=== PATIENT | female | born 1980 | race Caucasian/White ===

== ENCOUNTER 2016-11-22 07:30 | Inpatient (IN) | payer BC ==
--- NOTE | 2016-11-22 08:22 | PCM.OPNOTE ---
- General Post-Op/Procedure Note Date of Surgery/Procedure: 11/22/16 Operative Procedure(s): Repeat Findings: * Minimal scar tissue between the rectus and fascia * Minimal scar tissue between the uterus and bladder * Baby girl in a vertex presentation. Lightly meconium stained fluid. APGARS of 7 & 9. Weight of 6lbs 11oz. * Normal appearance of the uterus, fallopian tubes, and ovaries Pre Op Diagnosis: History of prior . 40 weeks gestation Post-Op Diagnosis: Same Anesthesia Technique: Spinal Primary Surgeon: Abena Ponce Secondary Surgeon: Seth Caro Anesthesia Provider: Izzy Delgado Pathology: * Cord blood collected * Placenta discarded Fluid Replacement, Intraop: 1,500 Output, Urine Amount: 50 EBL in mLs: 400 Complications: None Condition: Good Free Text/Narrative:: The risks, benefits, indications, potential complications, and alternatives were explained to the patient and informed consent obtained. After induction of anesthesia, the patient was placed in a supine position and then draped and prepped in the usual sterile manner. A Pfannenstiel incision was made and carried down through the subcutaneous tissue to the fascia. Fascial incision was made and extended transversely. The fascia was from the underlying rectus tissue superiorly and inferiorly. The peritoneum was identified and entered. Peritoneal incision was extended longitudinally. The utero-vesical peritoneal reflection was incised transversely and the bladder flap was bluntly freed from the lower uterine segment. A low transverse uterine incision was made sharply with a scalpel and extended bluntly in a cephalocaudad direction. A baby girl was delivered from a vertex presentation with APGARS as above. After the umbilical cord was clamped and cut cord blood was obtained for evaluation. The placenta was removed intact and appeared normal. The uterus was exteriorized and cleared of clots. The uterine outline, tubes and ovaries appeared normal. The uterine incision was closed with running locked sutures of 0 Vicryl. Hemostasis was obtained with a second imbricating layer of 0 vicryl. The uterus was then placed back into the abdomen. The infracolic gutters were cleared of blood clots. The fascia was then reapproximated with running sutures of 0 Vicryl. The sucutaneous tissue was irrigated with sterile warm normal saline, hemostasis obtained with cautery. This layer was also closed with a running 0 vicryl. The skin was reapproximated with running Subcuticular 4-0 monocryl sutures. Instrument, sponge, and needle counts were correct prior the abdominal closure and at the conclusion of the case.
[2016-11-22] MEDS ORDERED: Morphine PF 10 MG/10 ML SDV ONE (08:24)
[2016-11-22] MEDS: Lactated Ringers 1,000 ML IV SCH ×2 (08:30→09:12)
[2016-11-22] MEDS ORDERED: Oxytocin 10 Units/1 ML SDV ONE (08:35)
[2016-11-22] MEDS ORDERED: Metoclopramide 10 MG/2 ML SDV IVPUSH ONE (08:53)
[2016-11-22] MEDS ORDERED: Sodium Chloride 0.9% 10 ML Syringe FLUSH PRN (08:53)
[2016-11-22] MEDS ORDERED: Citric Acid/Sodium Citrate Solution 30 ML Cup PO ONE (08:53)
--- NOTE | 2016-11-22 09:05 | PCM.PREANE ---
Preanesthetic Assessment - Procedure Proposed Procedure: Repeat section - Anesthesia/Transfusion/Family Hx Anesthesia History: Prior Anesthesia Without Reaction Family History of Anesthesia Reaction: No Transfusion History: No Prior Transfusion(s) Intubation History: Unknown - Review of Systems General: No Symptoms Pulmonary: Other (Congestion and drainage with laying flat in bed during ) Cardiovascular: Other (Murmur) Gastrointestinal: Other (Slight heartburn) Neurological: Headache (During , especially in the last week, higher BP in last week) Other: Reports: Thyroid Problems (Hypothyroidism), Anxiety - Physical Assessment NPO Status Date: 11/21/16 NPO Status Time: 22:00 Pulse: 71 O2 Sat by Pulse Oximetry: 100 Respiratory Rate: 14 Blood Pressure: 136/87 Temperature: 36.3 C Vital Signs: Last Vital Signs Temp 36.3 C 11/22/16 07:57 Pulse 71 11/22/16 07:57 Resp 14 11/22/16 07:57 BP 136/87 11/22/16 07:57 Pulse Ox 100 11/22/16 07:57 Height: 1.75 m Weight: 107.955 kg ASA Class: 2 Mental Status: Alert & Oriented x3 Airway Class: Mallampati = 1 Dentition: Reports: Normal Dentition Thyro-Mental Finger Breadths: 3 Mouth Opening Finger Breadths: 3 ROM/Head Extension: Full Lungs: Clear to auscultation, Normal respiratory effort Cardiovascular: Regular Rate, Regular Rhythm, No Murmurs - Lab Values: Lab values reviewed and ok to proceed with planned procedure - Allergies Allergies/Adverse Reactions: Allergies Allergy/AdvReac Type Severity Reaction Status Date / Time No Known Allergies Allergy Verified 11/22/16 08:36 - Acknowledgements Anesthesia Type Planned: Spinal Pt an Appropriate Candidate for the Planned Anesthesia: Yes Alternatives and Risks of Anesthesia Discussed w Pt/Guardian: Yes Pt/Guardian Understands and Agrees with Anesthesia Plan: Yes PreAnesthesia Questionnaire Other HEENT History: deviated septum, left Cardiovascular History: Reports: Heart Murmur COORDINATOR OF PLACEMENT History: Reports: : 3 Para: 2 Other Psychiatric History: hx depression/anxiety, was medicated 6 yrs ago, has not been on meds since Endocrine/Metabolic History: Reports: Hypothyroidism, Obesity/BMI 30+ - Past Surgical History Other Musculoskeletal Surgeries/Procedures:: Rt ulnar nerve surgery release - SUBSTANCE USE Smoking Status *Q: Never Smoker Second Hand Smoke Exposure: No Days Per Week of Alcohol Use: 0 Number of Drinks Per Day: 0 Total Drinks Per Week: 0 Recreational Drug Use History: No - HOME MEDS Home Medications: Home Meds Levothyroxine [Synthroid] 50 mcg PO ACBREAKFAST 12/25/14 [History] - CURRENT (IN HOUSE) MEDS Current Meds: Current Medications Citric Acid/Sodium Citrate (Bicitra Solution) 30 ml PO ONETIME ONE Stop: 11/22/16 08:54 Lactated Ringer's (Ringers, Lactated) 1,000 mls @ 125 mls/hr IV ASDIRECTED OMID Metoclopramide HCl (Reglan) 10 mg IVPUSH ONETIME ONE Stop: 11/22/16 08:54 Sodium Chloride (Saline Flush) 10 ml FLUSH ASDIRECTED PRN PRN Reason: Keep Vein Open Discontinued Medications Morphine Sulfate (Duramorph Pf) Confirm Administered Dose 10 mg .ROUTE .STK-MED ONE Stop: 11/22/16 08:25 Oxytocin (Pitocin) Confirm Administered Dose 20 unit .ROUTE .STK-MED ONE Stop: 11/22/16 08:36
[2016-11-22] MEDS ORDERED: Phenylephrine/Normal Saline 100 MCG/ML 10 ML Syringe ONE (10:47)
[2016-11-22] MEDS ORDERED: ceFAZolin 1 GM Vial ONE (10:47)
[2016-11-22] MEDS ORDERED: Ketorolac 30 MG/ML SDV ONE (10:47)
[2016-11-22] MEDS ORDERED: Ondansetron 4 MG/2 ML SDV ONE (10:47)
[2016-11-22] MEDS ORDERED: Lactated Ringers 1,000 ML ONE ×2 (10:48)
[2016-11-22] MEDS ORDERED: Meperidine PF 50 MG/ML Syringe IM PRN (11:08)
[2016-11-22] MEDS ORDERED: diphenhydrAMINE 50 MG/ML SDV IVPUSH PRN ×2 (11:08→12:00)
[2016-11-22] MEDS ORDERED: Ondansetron 4 MG/2 ML SDV IVPUSH PRN (11:08)
--- NOTE | 2016-11-22 11:12 | PCM.POSTAN ---
POST ANESTHESIA ASSESSMENT - MENTAL STATUS Mental Status: alert, oriented - VITAL SIGNS Pulse Rate: 71 SaO2: 98 Resp Rate: 16 Blood Pressure: 117/76 Temperature: 36.7 C - RESPIRATORY Respiratory Status: respiratory rate WNL, airway patent, O2 saturation stable - CARDIOVASCULAR CV Status: pulse rate WNL, blood pressure stable - GASTROINTESTINAL GI Status: no symptoms - PAIN Pain Score: 0 - POST OP HYDRATION Hydration Status: adequate & stable
[2016-11-22] MEDS ORDERED: Meperidine PF 50 MG/ML Syringe IVPUSH PRN (11:20)
[2016-11-22] MEDS ORDERED: Lanolin 100% Cream 7 GM Tube TOP PRN (12:00)
[2016-11-22] MEDS ORDERED: Naloxone 0.4 MG/ML SDV IVPUSH PRN (12:00)
[2016-11-22] MEDS ORDERED: Ondansetron 4 MG/2 ML SDV IV PRN (12:00)
[2016-11-22] MEDS ORDERED: Dextrose 5%-Lactated Ringers 1,000 ML IV SCH (12:00)
[2016-11-22] MEDS: Ketorolac 30 MG/ML SDV IVPUSH SCH ×2 (17:34→22:53)
[2016-11-22] MEDS: Simethicone 80 MG Tab.Chew PO PRN (22:13)
[2016-11-22] MEDS: Docusate Sodium 100 MG Cap PO PRN (22:56)
[2016-11-23] MEDS: Ketorolac 30 MG/ML SDV IVPUSH SCH (05:00)
--- NOTE | 2016-11-23 10:59 | PCM.SN ---
- Free Text/Narrative Note: PPD#1 Afebrile, no heavy vaginal bleeding, incision healing normally, no leg cramping , ambulating.
[2016-11-23] MEDS: Ibuprofen 600 MG Tab PO PRN ×2 (11:02→17:50)
[2016-11-23] MEDS: Docusate Sodium 100 MG Cap PO PRN ×2 (11:02→22:10)
[2016-11-23] MEDS: Acetaminophen/oxyCODONE 325-5 MG Tab PO PRN ×2 (15:50→21:49)
[2016-11-23] MEDS: Simethicone 80 MG Tab.Chew PO PRN (22:10)
[2016-11-24] MEDS: Acetaminophen/oxyCODONE 325-5 MG Tab PO PRN ×3 (03:53→20:34)
[2016-11-24] MEDS: Ibuprofen 600 MG Tab PO PRN ×3 (07:56→21:19)
[2016-11-24] MEDS: Docusate Sodium 100 MG Cap PO PRN ×2 (07:58→20:34)
--- NOTE | 2016-11-24 10:11 | PCM.SN ---
- Free Text/Narrative Note: PPD#2 Afebrile, no cough, Uterus involuting normally, Incision normal postoperative ecchymosis, no heavy vaginal bleeding, no leg cramping.
[2016-11-24] MEDS: Simethicone 80 MG Tab.Chew PO PRN (15:40)
[2016-11-25] MEDS: Ibuprofen 600 MG Tab PO PRN ×2 (03:55→09:28)
[2016-11-25 05:06] VITALS: BP 125/61
--- NOTE | 2016-11-25 11:53 | PCM.DCSUM1 ---
Discharge Summary - Hospital Course Free Text/Narrative:: [facility] Post-Op/Procedure Note Patient Name: SAVITA PITT Date of : 78 Patient Status: Inpatient Attending Provider: Abena Ponce Date: 11/22/16 08:20 Initialization Date: 11/22/16 08:20 - General Post-Op/Procedure Note Date of Surgery/Procedure: 11/22/16 Operative Procedure(s): Repeat Findings: * Minimal scar tissue between the rectus and fascia * Minimal scar tissue between the uterus and bladder * Baby girl in a vertex presentation. Lightly meconium stained fluid. APGARS of 7 & 9. Weight of 6lbs 11oz. * Normal appearance of the uterus, fallopian tubes, and ovaries Pre Op Diagnosis: History of prior . 40 weeks gestation Post-Op Diagnosis: Same Anesthesia Technique: Spinal Primary Surgeon: Abena Ponce Secondary Surgeon: Seth Caro Anesthesia Provider: Izzy Delgado Pathology: * Cord blood collected * Placenta discarded Fluid Replacement, Intraop: 1,500 Output, Urine Amount: 50 EBL in mLs: 400 Complications: None Condition: Good Free Text/Narrative:: The risks, benefits, indications, potential complications, and alternatives were explained to the patient and informed consent obtained. After induction of anesthesia, the patient was placed in a supine position and then draped and prepped in the usual sterile manner. A Pfannenstiel incision was made and carried down through the subcutaneous tissue to the fascia. Fascial incision was made and extended transversely. The fascia was from the underlying rectus tissue superiorly and inferiorly. The peritoneum was identified and entered. Peritoneal incision was extended longitudinally. The utero-vesical peritoneal reflection was incised transversely and the bladder flap was bluntly freed from the lower uterine segment. A low transverse uterine incision was made sharply with a scalpel and extended bluntly in a cephalocaudad direction. A baby girl was delivered from a vertex presentation with APGARS as above. After the umbilical cord was clamped and cut cord blood was obtained for evaluation. The placenta was removed intact and appeared normal. The uterus was exteriorized and cleared of clots. The uterine outline, tubes and ovaries appeared normal. The uterine incision was closed with running locked sutures of 0 Vicryl. Hemostasis was obtained with a second imbricating layer of 0 vicryl. The uterus was then placed back into the abdomen. The infracolic gutters were cleared of blood clots. The fascia was then reapproximated with running sutures of 0 Vicryl. The sucutaneous tissue was irrigated with sterile warm normal saline, hemostasis obtained with cautery. This layer was also closed with a running 0 vicryl. The skin was reapproximated with running Subcuticular 4-0 monocryl sutures. Instrument, sponge, and needle counts were correct prior the abdominal closure and at the conclusion of the case. HPI Initial Comments: [facility] Post-Op/Procedure Note Patient Name: SAVITA PITT Date of : 78 Patient Status: Inpatient Attending Provider: Abena Ponce Date: 11/22/16 08:20 Initialization Date: 11/22/16 08:20 - General Post-Op/Procedure Note Date of Surgery/Procedure: 11/22/16 Operative Procedure(s): Repeat Findings: * Minimal scar tissue between the rectus and fascia * Minimal scar tissue between the uterus and bladder * Baby girl in a vertex presentation. Lightly meconium stained fluid. APGARS of 7 & 9. Weight of 6lbs 11oz. * Normal appearance of the uterus, fallopian tubes, and ovaries Pre Op Diagnosis: History of prior . 40 weeks gestation Post-Op Diagnosis: Same Anesthesia Technique: Spinal Primary Surgeon: Abena Ponce Secondary Surgeon: Seth Caro Anesthesia Provider: Izzy Delgado Pathology: * Cord blood collected * Placenta discarded Fluid Replacement, Intraop: 1,500 Output, Urine Amount: 50 EBL in mLs: 400 Complications: None Condition: Good Free Text/Narrative:: The risks, benefits, indications, potential complications, and alternatives were explained to the patient and informed consent obtained. After induction of anesthesia, the patient was placed in a supine position and then draped and prepped in the usual sterile manner. A Pfannenstiel incision was made and carried down through the subcutaneous tissue to the fascia. Fascial incision was made and extended transversely. The fascia was from the underlying rectus tissue superiorly and inferiorly. The peritoneum was identified and entered. Peritoneal incision was extended longitudinally. The utero-vesical peritoneal reflection was incised transversely and the bladder flap was bluntly freed from the lower uterine segment. A low transverse uterine incision was made sharply with a scalpel and extended bluntly in a cephalocaudad direction. A baby girl was delivered from a vertex presentation with APGARS as above. After the umbilical cord was clamped and cut cord blood was obtained for evaluation. The placenta was removed intact and appeared normal. The uterus was exteriorized and cleared of clots. The uterine outline, tubes and ovaries appeared normal. The uterine incision was closed with running locked sutures of 0 Vicryl. Hemostasis was obtained with a second imbricating layer of 0 vicryl. The uterus was then placed back into the abdomen. The infracolic gutters were cleared of blood clots. The fascia was then reapproximated with running sutures of 0 Vicryl. The sucutaneous tissue was irrigated with sterile warm normal saline, hemostasis obtained with cautery. This layer was also closed with a running 0 vicryl. The skin was reapproximated with running Subcuticular 4-0 monocryl sutures. Instrument, sponge, and needle counts were correct prior the abdominal closure and at the conclusion of the case. Brief History: [facility] . Post-Op/Procedure Note. Patient Name: SAVITA PITT [facility] Record Number: [id number]. Date of : Patient Status: Inpatient. Attending Provider: Abena Poncecount Number: [id number]. Date: 11/22/16 08:20Initialization Date: 11/22/16 08:20. - General Post-Op/Procedure Note. Date of Surgery/Procedure: 11/22/16. Operative Procedure(s): Repeat . Findings: Minimal scar tissue between the rectus and fascia. Minimal scar tissue between the uterus and bladder. Baby girl in a vertex presentation. Lightly meconium stained fluid. APGARS of 7 & 9. Weight of 6lbs 11oz. Normal appearance of the uterus, fallopian tubes, and ovaries. Pre Op Diagnosis: History of prior . 40 weeks gestation. Post-Op Diagnosis: Same. Anesthesia Technique: Spinal. Primary Surgeon: Abena Ponce. Secondary Surgeon: Seth Caro. Anesthesia Provider: Izzy Delgado. Pathology: Cord blood collected. Placenta discarded. Fluid Replacement, Intraop: 1,500. Output, Urine Amount: 50. EBL in mLs: 400. Complications: None. Condition: Good. Free Text/ Narrative:: The risks, benefits, indications, potential complications, and alternatives were explained to the patient and informed consent obtained. After induction of anesthesia, the patient was placed in a supine position and then draped and prepped in the usual sterile manner. A Pfannenstiel incision was made and carried down through the subcutaneous tissue to the fascia. Fascial incision was made and extended transversely. The fascia was from the underlying rectus tissue superiorly and inferiorly. The peritoneum was identified and entered. Peritoneal incision was extended longitudinally. The utero-vesical peritoneal reflection was incised transversely and the bladder flap was bluntly freed from the lower uterine segment. A low transverse uterine incision was made sharply with a scalpel and extended bluntly in a cephalocaudad direction. A baby girl was delivered from a vertex presentation with APGARS as above. After the umbilical cord was clamped and cut cord blood was obtained for evaluation. The placenta was removed intact and appeared normal. The uterus was exteriorized and cleared of clots. The uterine outline, tubes and ovaries appeared normal. The uterine incision was closed with running locked sutures of 0 Vicryl. Hemostasis was obtained with a second imbricating layer of 0 vicryl. The uterus was then placed back into the abdomen. The infracolic gutters were cleared of blood clots. The fascia was then reapproximated with running sutures of 0 Vicryl. The sucutaneous tissue was irrigated with sterile warm normal saline, hemostasis obtained with cautery. This layer was also closed with a running 0 vicryl. The skin was reapproximated with running Subcuticular 4-0 monocryl sutures. Instrument, sponge, and needle counts were correct prior the abdominal closure and at the conclusion of the case. - Discharge Data Discharge Date: 11/25/16 Discharge Disposition: Home, Self-Care 01 Condition: Good - Discharge Diagnosis/Problem(s) (1) 40 weeks gestation of SNOMED Code(s): 26976321 ICD Code: Z3A.40 - 40 WEEKS GESTATION OF Status: Acute Current Visit: Yes (2) delivery delivered SNOMED Code(s): 631564913 ICD Code: O82 - ENCOUNTER FOR DELIVERY WITHOUT INDICATION Status: Acute Current Visit: Yes - Patient Summary/Data Operative Procedure(s) Performed: Repeat Complications: none Consults: none Hospital Course: uneventful - Patient Instructions Diet: Heart Healthy Diet Driving: Do Not Drive (x4 weeks) Showering/Bathing: May Shower, No Tub Bathing/Swimming (x6 weeks) Wound/Incision Care: Keep Operative Site/Wound Site Clean and Dry Notify Provider of: Fever, Increased Pain, Swelling and Redness, Drainage, Nausea and/or Vomiting - Discharge Plan Home Medications: Home Meds Levothyroxine [Synthroid] 50 mcg PO ACBREAKFAST 12/25/14 [History] Acetaminophen/oxyCODONE [Percocet 325-5 MG] 1 tab PO Q6H PRN #30 tablet [Rx] Docusate Sodium [Colace] 100 mg PO Q12H PRN #0 cap 11/25/16 [Rx] Ibuprofen [IJD: Ibuprofen] 200 - 600 mg PO Q6H PRN #0 tablet 11/25/16 [Rx] Simethicone 80 mg PO Q6H PRN #0 tab.chew 11/25/16 [Rx] Referrals: Abena Ponce MD [Physician] - (4 weeks) - Discharge Summary/Plan Comment DC Time >30 min.: No - Patient Data Vitals - Most Recent: Last Vital Signs Temp 97.5 F 11/25/16 03:54 Pulse 79 11/25/16 03:54 Resp 14 11/24/16 20:43 BP 125/61 11/25/16 03:54 Pulse Ox 97 11/25/16 03:54 Weight - Most Recent: 238 lb I&O - Last 24 hours: Intake & Output 11/24/16 11/25/16 11/25/16 22:59 06:59 14:59 Intake Total 240 120 Balance 240 120 Med Orders - Current: Current Medications Diphenhydramine HCl (Benadryl) 25 mg IVPUSH Q6H PRN PRN Reason: pruritis Diphenhydramine HCl (Benadryl) 25 mg IVPUSH Q6H PRN PRN Reason: Itching or Nausea Docusate Sodium (Colace) 100 mg PO Q12H PRN PRN Reason: Constipation Last Admin: 11/24/16 20:34 Dose: 100 mg Emollient Ointment (Lansinoh Hpa) 0 gm TOP ASDIRECTED PRN PRN Reason: Sore Nipples Last Admin: 11/24/16 18:51 Dose: 1 tube Ibuprofen (Motrin) 600 mg PO Q6H PRN PRN Reason: mild pain or fever Last Admin: 11/25/16 09:28 Dose: 600 mg Naloxone HCl (Narcan) 0.1 mg IVPUSH SEECOMMENT PRN PRN Reason: Respiratory Depression Ondansetron HCl (Zofran) 4 mg IVPUSH ONETIME PRN PRN Reason: Nausea/Vomiting Ondansetron HCl (Zofran) 4 mg IV Q8H PRN PRN Reason: Nausea/Vomiting Oxycodone/Acetaminophen (Percocet 325-5 Mg) 2 tab PO Q4H PRN PRN Reason: Pain (moderate 4-6) Last Admin: 11/24/16 20:34 Dose: 1 tab Simethicone (Simethicone) 80 mg PO Q6H PRN PRN Reason: Gas Last Admin: 11/24/16 15:40 Dose: 80 mg Discontinued Medications Cefazolin Sodium (Ancef) Confirm Administered Dose 2 gm .ROUTE .STK-MED ONE Stop: 11/22/16 10:48 Citric Acid/Sodium Citrate (Bicitra Solution) 30 ml PO ONETIME ONE Stop: 11/22/16 08:54 Last Admin: 11/22/16 09:42 Dose: 30 ml Lactated Ringer's (Ringers, Lactated) 1,000 mls @ 125 mls/hr IV ASDIRECTED OMID Last Admin: 11/22/16 09:12 Dose: 125 mls/hr Lactated Ringer's (Ringers, Lactated) Confirm Administered Dose 1,000 mls @ as directed .ROUTE .STK-MED ONE Stop: 11/22/16 10:49 Lactated Ringer's (Ringers, Lactated) Confirm Administered Dose 1,000 mls @ as directed .ROUTE .STK-MED ONE Stop: 11/22/16 10:49 Dextrose/Lactated Ringer's (Dextrose 5%-Lactated Ringers) 1,000 mls @ 125 mls/ hr IV ASDIRECTED OMID Stop: 11/22/16 19:59 Last Admin: 11/22/16 18:33 Dose: Not Given Ketorolac Tromethamine (Toradol) Confirm Administered Dose 30 mg .ROUTE .STK- MED ONE Stop: 11/22/16 10:48 Ketorolac Tromethamine (Toradol) 30 mg IVPUSH Q6H OMID Stop: 11/23/16 04:46 Last Admin: 11/23/16 05:00 Dose: 30 mg Meperidine HCl (Demerol) 50 mg IM Q6H PRN PRN Reason: Pain Meperidine HCl (Demerol) 12.5 mg IVPUSH ONETIME PRN PRN Reason: Shivering Stop: 11/23/16 11:21 Metoclopramide HCl (Reglan) 10 mg IVPUSH ONETIME ONE Stop: 11/22/16 08:54 Last Admin: 11/22/16 09:42 Dose: 10 mg Morphine Sulfate (Duramorph Pf) Confirm Administered Dose 10 mg .ROUTE .STK-MED ONE Stop: 11/22/16 08:25 Ondansetron HCl (Zofran) Confirm Administered Dose 4 mg .ROUTE .STK-MED ONE Stop: 11/22/16 10:48 Oxytocin (Pitocin) Confirm Administered Dose 20 unit .ROUTE .STK-MED ONE Stop: 11/22/16 08:36 Phenylephrine HCl (Phenylephrine In Ns 100 Mcg/Ml) Confirm Administered Dose 1 mg .ROUTE .STK-MED ONE Stop: 11/22/16 10:48 Sodium Chloride (Saline Flush) 10 ml FLUSH ASDIRECTED PRN PRN Reason: Keep Vein Open *Q Meaningful Use (DIS) - VTE *Q VTE Criteria *Q: - Stroke *Q Stroke Criteria *Q: - AMI *Q AMI Criteria *Q:
== END 2016-11-25 12:07 | disposition home or self-care (01) | DRG 540 ==
LOC: JD.OB 07:30
PROVIDERS: ADMIT Obstetrics & Gynecology; ATTEND Obstetrics & Gynecology
PROC: 10D00Z1 Extraction of Products of Conception, Low, Open Approach (ICD-10-PCS; principal; 2016-11-22)
DX: O34.211 Maternal care for low transverse scar from previous cesarean delivery (principal); N85.8 Other specified noninflammatory disorders of uterus; Z3A.40 40 weeks gestation of pregnancy; Z37.0 Single live birth; O99.284 Endocrine, nutritional and metabolic diseases complicating childbirth; E06.3 Autoimmune thyroiditis
CPT/HCPCS: 01961; 36415; 85027; A9270-GY; J0690; J1885; J2270; J2405; J2590; J2765; J7120

== ENCOUNTER 2018-07-26 08:41 | Emergency (ER) | payer BC ==
[2018-07-26] MEDS ORDERED: Sodium Chloride 0.9% 10 ML Syringe FLUSH PRN (09:13)
--- NOTE | 2018-07-26 09:18 | EDM.PDOC ---
ED HPI GENERAL MEDICAL PROBLEM - General Chief Complaint: Syncope Stated Complaint: SYNCOPE Time Seen by Provider: 07/26/18 08:58 Source of Information: Reports: Patient History Limitations: Reports: No Limitations - History of Present Illness INITIAL COMMENTS - FREE TEXT/NARRATIVE: The patient is a 38-year-old female with hx hypothyroidism otherwise healthy who comes in after a syncopal episode during the night. She states that she used to have syncopal episodes with her periods, thought vasovagal, but hasn't had a passing out episode in a long time. Last night around 2 AM she was up in the middle of the night with one of her small children, changing a diaper, when she suddenly felt very lightheaded and felt like she is pass out. She was able to yell twice for her . She doesn't remember anything after that. He foundl her slumped over on the floor, eyes open, not responding. He told her that she was out for a few minutes. After that she woke up and felt kind of weak and dizzy but otherwise okay. She drank some water and went back to bed. This morning she feels vaguely weak but has no other specific complaint. She said she ate a normal meal last evening before going to bed. Notes that she has been exhausted lately with 3 children under the age of 3 including one who has been chronically ill and has high medical needs, but she notes that things have been going well lately and she's actually been getting a lot more sleep than usual for the last 2 weeks. No recent travel or immobilization. No recent illness. No vomiting, diarrhea, urinary symptoms. She is on her menstrual period now and has had fairly heavy bleeding with that. No recent surgery. She has a mild headache, no other specific complaint at this time. - Related Data Allergies Allergy/AdvReac Type Severity Reaction Status Date / Time No Known Allergies Allergy Verified 11/22/16 08:36 Home Meds: Home Meds Levothyroxine [Synthroid] 50 mcg PO ACBREAKFAST 12/25/14 [History] Ibuprofen [IJD: Ibuprofen] 200 - 600 mg PO Q6H PRN #0 tablet 11/25/16 [Rx] Past Medical History Other HEENT History: deviated septum, left Cardiovascular History: Reports: Heart Murmur [place] History: Reports: Psychiatric History: Reports: Anxiety, Depression Other Psychiatric History: hx depression/anxiety, was medicated 6 yrs ago, has not been on meds since Endocrine/Metabolic History: Reports: Hypothyroidism, Obesity/BMI 30+ - Past Surgical History Other Musculoskeletal Surgeries/Procedures:: Rt ulnar nerve surgery release Social & Family History - Family History Family Medical History: Noncontributory - Tobacco Use Smoking Status *Q: Never Smoker - Caffeine Use Caffeine Use: Reports: Coffee Other Caffeine Use: Occasional - Recreational Drug Use Recreational Drug Use: No ED ROS GENERAL - Review of Systems Review Of Systems: See Below Constitutional: Denies: Fever HEENT: Reports: Rhinitis Respiratory: Denies: Shortness of Breath Cardiovascular: Denies: Chest Pain Endocrine: Reports: Fatigue GI/Abdominal: Denies: Abdominal Pain, Vomiting : Denies: Dysuria Musculoskeletal: Denies: Leg Pain Skin: Reports: No Symptoms Neurological: Reports: No Symptoms Psychiatric: Reports: No Symptoms Hematologic/Lymphatic: Reports: No Symptoms Immunologic: Reports: No Symptoms - Physical Exam Exam: See Below Exam Limited By: No Limitations General Appearance: Alert, WD/WN, No Apparent Distress Eye Exam: Bilateral Eye: EOMI, Normal Inspection Ears: Normal External Exam Nose: Normal Inspection Throat/Mouth: Normal Inspection, Normal Oropharynx, Normal Voice Head Exam: Atraumatic, Normocephalic Neck: Normal Inspection, Supple, Non-Tender, Full Range of Motion Respiratory/Chest: No Respiratory Distress, Lungs Clear, Normal Breath Sounds, Chest Non-Tender Cardiovascular: Normal Peripheral Pulses, Regular Rate, Rhythm, No Edema GI/Abdominal: Soft, Non-Tender, No Distention Neuro Exam (Abbreviated): Alert, Oriented, CN II-XII Intact, Normal Cognition, No Motor/Sensory Deficits Back Exam: Normal Inspection Extremities: Normal Inspection Psychiatric: Normal Affect, Normal Mood Skin Exam: Warm, Dry, Intact, Normal Color, No Rash Course - Vital Signs Last Recorded V/S: Last Vital Signs Temp 36.8 C 07/26/18 08:51 Pulse 80 07/26/18 10:31 Resp 16 07/26/18 10:31 BP 102/63 07/26/18 10:31 Pulse Ox 95 07/26/18 10:31 Orthostatic Blood Pressure [ 105/71 Standing] Orthostatic Blood Pressure [ 107/79 Sitting] Orthostatic Blood Pressure [ 116/81 Supine] - Orders/Labs/Meds Orders: Active Orders 24 hr Category Date Time Status EKG 12 Lead [EKG Documentation Completion] [RC] STAT Care 07/26/18 09:07 Active Orthostatic Vital Signs [RC] ASDIRECTED Care 07/26/18 09:18 Active Peripheral IV Care [RC] . DIRECTED Care 07/26/18 09:13 Active Peripheral IV Care [RC] . DIRECTED Care 07/26/18 09:13 Active Peripheral IV Insertion Adult [OM.PC] Routine Oth 07/26/18 09:13 Ordered Labs: Laboratory Tests 07/26/18 07/26/18 07/26/18 Range/Units 09: 09:27 09:40 WBC 5.38 (3.98-10.04) K/mm3 RBC 4.25 (3.98-5.22) M/mm3 Hgb 12.2 (11.2-15.7) gm/L Hct 37.3 (34.1-44.9) % MCV 87.8 (79.4-94.8) fl MCH 28.7 (25.6-32.2) pg MCHC 32.7 (32.2-35.5) g/dl RDW Std Deviation 42.8 (36.4-46.3) fL Plt Count 260 (182-369) K/mm3 MPV 10.3 (9.4-12.3) fl Neut % (Auto) 71.6 H (34.0-71.1) % Lymph % (Auto) 17.1 L (19.3-51.7) % [place] % (Auto) 7.8 (4.7-12.5) % Eos % (Auto) 2.6 (0.7-5.8) Baso % (Auto) 0.7 (0.1-1.2) % Neut # (Auto) 3.85 (1.56-6.13) K/mm3 Lymph # (Auto) 0.92 L (1.18-3.74) K/mm3 [place] # (Auto) 0.42 H (0.24-0.36) K/mm3 Eos # (Auto) 0.14 (0.04-0.36) K/mm3 Baso # (Auto) 0.04 (0.01-0.08) K/mm3 Sodium 141 (136-145) mEq/L Potassium 3.8 (3.5-5.1) mEq/L Chloride 103 (98-107) mEq/L Carbon Dioxide 28 (21-32) mEq/L Anion Gap 13.8 (5-15) BUN 15 (7-18) mg/dL Creatinine 0.7 (0.55-1.02) mg/dL Est Cr Clr Drug Dosing 112.76 mL/min Estimated GFR (MDRD) > 60 (>60) mL/min BUN/Creatinine Ratio 21.4 H (14-18) Glucose 94 (74-106) mg/dL Calcium 8.8 (8.5-10.1) mg/dL Magnesium 2.0 (1.8-2.4) mg/dl Total Bilirubin 0.4 (0.2-1.0) mg/dL AST 15 (15-37) U/L ALT 21 (14-59) U/L Alkaline Phosphatase 65 (46-116) U/L Total Protein 7.7 (6.4-8.2) g/dl Albumin 3.7 (3.4-5.0) g/dl Globulin 4.0 gm/dL Albumin/Globulin Ratio 0.9 L (1-2) TSH 3rd Generation 1.275 (0.358-3.74) uIU/mL Urine HCG, Qual Negative (NEGATIVE) Meds: Medications Discontinued Medications Generic Name Dose Route Start Last Admin Trade Name Freq PRN Reason Stop Dose Admin Sodium Chloride 10 ml 07/26/18 09:13 07/26/18 09:30 Saline Flush FLUSH 10 ml ASDIRECTED PRN Administration Keep Vein Open - Re-Assessments/Exams Free Text/Narrative Re-Assessment/Exam: 07/26/18 09:30 EKG has findings suggestive of LVH and inferior Q waves, no prior available for comparison. She did have a normal echocardiogram with no LV wall abnormalities and a normal EF in 2015. She doesn't have exertional syncopal episodes. Her BP is normal here today. Her story of syncope last night doesn't sound cardiac in nature (no chest pain, no palpitations, significant prodrome of feeling vision go black/nausea/weakness/tunnel vision). No features to suggest seizure. Will refer back to PCP to consider repeat echo if EKG findings are new. Labs including hemoglobin are normal. Discussed ED return precautions. 07/26/18 13:18 Departure - Departure Time of Disposition: 10:16 Disposition: Home, Self-Care 01 Clinical Impression: Syncope and collapse - Discharge Information Instructions: Syncope, [id number] Referrals: Abena Ponce MD [Primary Care Provider] - Forms: ED Department Discharge Additional Instructions: 1. Drink plenty of fluids. If you have another sensation of being about to pass out, try to immediately sit down on the floor and wait for the feeling to pass. 2. Follow up with your regular doctor as soon as you're able. Your EKG today shows possible left ventricular hypertrophy (enlargement of the left heart muscle). I do not have a prior EKG available for comparison. You had a normal ultrasound of your heart in 2015 that showed normal left heart muscle. However, I would recommend a repeat ultrasound of your heart (echocardiogram) given this finding, unless this finding was present in 2015 in which case you don't need to worry about it. 3. Return to the ED as needed for any new concerning symptoms, such as difficulty breathing, chest pain, repeated passing out episodes, severe pain, or any other concerning symptoms - My Orders Last 24 Hours: My Active Orders 07/26/18 09:07 EKG 12 Lead [EKG Documentation Completion] [RC] STAT 07/26/18 09:13 Peripheral IV Care [RC] . DIRECTED Peripheral IV Care [RC] . DIRECTED Peripheral IV Insertion Adult [OM.PC] Routine 07/26/18 09:18 Orthostatic Vital Signs [RC] ASDIRECTED - Assessment/Plan Last 24 Hours: My Active Orders 07/26/18 09:07 EKG 12 Lead [EKG Documentation Completion] [RC] STAT 07/26/18 09:13 Peripheral IV Care [RC] . DIRECTED Peripheral IV Care [RC] . DIRECTED Peripheral IV Insertion Adult [OM.PC] Routine 07/26/18 09:18 Orthostatic Vital Signs [RC] ASDIRECTED
[2018-07-26 10:32] VITALS: BP 102/63
== END 2018-07-26 10:35 | disposition home or self-care (01) ==
LOC: JD.ED 08:41
DX: R55 Syncope and collapse (principal); E03.9 Hypothyroidism, unspecified; E66.9 Obesity, unspecified
CPT/HCPCS: 36415; 80053; 81025; 83735; 84443; 85025; 93005; 99283; 99284-25

== ENCOUNTER 2019-08-04 09:06 | Emergency (ER) | payer BC ==
[2019-08-04 09:22] VITALS: BP 123/75; PULSE 79
--- NOTE | 2019-08-04 09:48 | EDM.PDOC ---
ED HPI GENERAL MEDICAL PROBLEM - General Chief Complaint: Lower Extremity Injury/Pain Stated Complaint: FRACTURED LEFT FOOT Time Seen by Provider: 08/04/19 09:20 Source of Information: Reports: Patient History Limitations: Reports: No Limitations - History of Present Illness INITIAL COMMENTS - FREE TEXT/NARRATIVE: The patient presents with left foot pain. [place] and she caught her foot on something and tripped. She only hurt her left foot. She has ecchymosis to the top of her left foot. She has no ankle pain or swelling. She has no other injuries. This happened on Friday. Onset: Sudden Duration: Day(s): Location: Reports: Lower Extremity, Left (foot) Quality: Reports: Sharp Severity: Moderate Improves with: Reports: Immobilization Worsens with: Reports: Movement Context: Reports: Trauma (tripped while running) Associated Symptoms: Reports: No Other Symptoms Left Feet Pain Score (Numeric/FACES): 7 - Related Data Allergies Allergy/AdvReac Type Severity Reaction Status Date / Time No Known Allergies Allergy Verified 08/04/19 09:22 Home Meds: Home Meds Levothyroxine [Synthroid] 50 mcg PO ACBREAKFAST 12/25/14 [History] Ibuprofen [IJD: Ibuprofen] 200 - 600 mg PO Q6H PRN #0 tablet 11/25/16 [Rx] Past Medical History Other HEENT History: deviated septum, left Cardiovascular History: Reports: Heart Murmur 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: Psychiatric History: Reports: Anxiety, Depression Other Psychiatric History: hx depression/anxiety, was medicated 6 yrs ago, has not been on meds since Endocrine/Metabolic History: Reports: Hypothyroidism, Obesity/BMI 30+ - Past Surgical History Other Musculoskeletal Surgeries/Procedures:: Rt ulnar nerve surgery release Social & Family History - Family History Family Medical History: Noncontributory - Tobacco Use Smoking Status *Q: Never Smoker - Caffeine Use Caffeine Use: Reports: Coffee Other Caffeine Use: Occasional - Recreational Drug Use Recreational Drug Use: No Review of Systems - Review of Systems Review Of Systems: See Below Constitutional: Reports: No Symptoms Eyes: Reports: No Symptoms Ears: Reports: No Symptoms Nose: Reports: No Symptoms Mouth/Throat: Reports: No Symptoms Respiratory: Reports: No Symptoms Cardiovascular: Reports: No Symptoms GI/Abdominal: Reports: No Symptoms Genitourinary: Reports: No Symptoms Musculoskeletal: Reports: Other (Left foot pain) ED EXAM, GENERAL - Physical Exam Exam: See Below Exam Limited By: No Limitations General Appearance: Alert, No Apparent Distress Ears: Normal External Exam Nose: Normal Inspection Throat/Mouth: Normal Inspection Neck: Normal Inspection Respiratory/Chest: No Respiratory Distress Extremities: Other (Ecchymosis to the top of the foot and pain upon palpation. Good sensation and capillary refill distally.) Course - Vital Signs Last Recorded V/S: Last Vital Signs Temp 98.2 F 08/04/19 09:20 Pulse 79 08/04/19 09:20 Resp 16 08/04/19 09:20 BP 123/75 08/04/19 09:20 Pulse Ox 99 08/04/19 09:20 - Orders/Labs/Meds Orders: Active Orders 24 hr Category Date Time Status Foot Comp Min 3V Lt [CR] Stat Exams 08/04/19 09:35 Taken - Re-Assessments/Exams Free Text/Narrative Re-Assessment/Exam: 08/04/19 09:48 I ordered an x-ray of her foot. 08/04/19 10:00 The x-ray looks good. Departure - Departure Time of Disposition: 10:00 Disposition: Home, Self-Care 01 Condition: Good Clinical Impression: Sprain of left foot Qualifiers: Encounter type: initial encounter Qualified Code(s): S93.602A - Unspecified sprain of left foot, initial encounter - Discharge Information *PRESCRIPTION DRUG MONITORING PROGRAM REVIEWED*: Not Applicable *COPY OF PRESCRIPTION DRUG MONITORING REPORT IN PATIENT PRESTON: Not Applicable Referrals: Karyn Calvillo PA-C [Primary Care Provider] - 1 Week Forms: ED Department Discharge Additional Instructions: Ice your foot for 15 minutes 3 times per day for 2 days. Take tylenol or motrin for pain. If the pain is not better in a week, follow up with your doctor for a repeat x-ray to rule out an occult fracture. Sepsis Event Note - Evaluation Sepsis Screening Result: No Definite Risk - Focused Exam Vital Signs: Vital Signs Temp Pulse Resp BP Pulse Ox 08/04/19 09:20 98.2 F 79 16 123/75 99 Date Exam was Performed: 08/04/19 Time Exam was Performed: 10:00 - My Orders Last 24 Hours: My Active Orders 08/04/19 09:35 Foot Comp Min 3V Lt [CR] Stat - Assessment/Plan Last 24 Hours: My Active Orders 08/04/19 09:35 Foot Comp Min 3V Lt [CR] Stat
--- NOTE | 2019-08-04 11:12 | CR ---
Left foot: Four views of the left foot were obtained. Comparison: No previous foot study. Small plantar spur is seen. No acute fracture, dislocation or other bony abnormality is identified. Impression: 1. Small plantar spur. 2. Left foot study is otherwise unremarkable. Diagnostic code #2 This report was dictated in [place] Standard Time
== END 2019-08-04 10:08 | disposition home or self-care (01) ==
LOC: JD.ED 09:06
DX: S93.602A Unspecified sprain of left foot, initial encounter (principal); E03.9 Hypothyroidism, unspecified; E66.9 Obesity, unspecified; Z68.28 Body mass index [BMI] 28.0-28.9, adult; Z79.890 Hormone replacement therapy; W18.40XA Slipping, tripping and stumbling without falling, unspecified, initial encounter; Y93.02 Activity, running; Y92.79 Other farm location as the place of occurrence of the external cause
CPT/HCPCS: 73630-26-LT; 73630-LT; 99282; 99283-25

== ENCOUNTER 2021-03-16 18:37 | Emergency (ER) | payer BC ==
[2021-03-16 19:50] VITALS: BP 129/94; PULSE 66
[2021-03-16] MEDS ORDERED: Sodium Chloride 0.9% 1,000 ML IV ONE (19:59)
[2021-03-16] MEDS ORDERED: Ketorolac 30 MG/ML SDV IVPUSH ONE (19:59)
[2021-03-16] MEDS ORDERED: Famotidine 20 MG/2 ML SDV IVPUSH PRN (20:00)
[2021-03-16] MEDS ORDERED: EPINEPHrine 1 MG/ML SDV IM PRN (20:00)
[2021-03-16] MEDS ORDERED: Sodium Chloride 0.9% 10 ML Syringe FLUSH SCH (20:00)
[2021-03-16] MEDS ORDERED: methylPREDNISolone Sodium Succinate 125 MG/2 ML SDV IVPUSH PRN (20:00)
[2021-03-16] MEDS ORDERED: diphenhydrAMINE 50 MG/ML SDV IVPUSH PRN (20:00)
--- NOTE | 2021-03-16 21:02 | EDM.PDOC ---
ED HPI GENERAL MEDICAL PROBLEM - General Chief Complaint: Headache Stated Complaint: COVID + Time Seen by Provider: 03/16/21 18:48 Source of Information: Reports: Patient History Limitations: Reports: No Limitations - History of Present Illness INITIAL COMMENTS - FREE TEXT/NARRATIVE: Patient is a 41-year-old female who recently tested positive for Covid but remained asymptomatic until today when she developed a 7 out of 10 headache and feels achy all over. Patient denies any fever chills. She is not having any cough or any shortness of breath or respiratory symptoms. She is not been nauseous or vomiting but has had some anorexia today. She denies any dysuria or hematuria. She has had no bloody or tarry stools. Patient states her muscle aches are worse than her headache. Patient does have family members at home are positive for Covid and has a daughter who is at high risk for Covid due to her comorbid health problems. Onset: Today Duration: Getting Worse Location: Reports: Generalized Quality: Reports: Ache, Pressure, Same as Previous Episode Severity: Severe Improves with: Reports: None Worsens with: Reports: None Context: Reports: Sick Contact Associated Symptoms: Reports: Headaches, Loss of Appetite. 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 Generalized Pain Score (Numeric/FACES): 8 Bilateral Upper Frontal Head Pain Score (Numeric/FACES): 7 - Related Data Allergies Allergy/AdvReac Type Severity Reaction Status Date / Time No Known Allergies Allergy Verified 03/16/21 19:52 Home Meds: Home Meds Levothyroxine [Synthroid] 50 mcg PO ACBREAKFAST 12/25/14 [History] Azithromycin 250 mg PO DAILY #6 tablet 03/16/21 [Rx] Ethinyl Estradiol/Drospirenone [Shanta 28] 1 each PO DAILY 03/16/21 [History] buPROPion [Wellbutrin] 75 mg PO BEDTIME 03/16/21 [History] predniSONE [Prednisone] 20 mg PO DAILY #5 tablet 03/16/21 [Rx] Past Medical History Other HEENT History: deviated septum, left Cardiovascular History: Reports: Heart Murmur Respiratory History: Reports: Asthma Gastrointestinal History: Reports: None Genitourinary History: Reports: None [employer]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: Neurological History: Reports: None Psychiatric History: Reports: Anxiety, Depression Other Psychiatric History: hx depression/anxiety, was medicated 6 yrs ago, has not been on meds since Endocrine/Metabolic History: Reports: Hypothyroidism, Obesity/BMI 30+ Hematologic History: Reports: None Immunologic History: Reports: None Dermatologic History: Reports: None - Infectious Disease History Infectious Disease History: Reports: Novel Coronavirus - Past Surgical History Head Surgeries/Procedures: Reports: None GI Surgical History: Reports: None Neurological Surgical History: Reports: None Other Musculoskeletal Surgeries/Procedures:: Rt ulnar nerve surgery release Social & Family History - Family History Family Medical History: No Pertinent Family History - Caffeine Use Caffeine Use: Reports: Coffee Other Caffeine Use: Occasional - Recreational Drug Use Recreational Drug Use: No ED ROS GENERAL - Review of Systems Review Of Systems: Comprehensive ROS is negative, except as noted in HPI. Constitutional: Reports: Malaise, Decreased Appetite Respiratory: Reports: No Symptoms. Denies: Shortness of Breath, Cough Cardiovascular: Reports: No Symptoms GI/Abdominal: Reports: No Symptoms. Denies: Abdominal Pain, Black Stool, Bloody Stool, Distension : Reports: No Symptoms Musculoskeletal: Reports: Muscle Pain - Physical Exam Exam: See Below Exam Limited By: No Limitations General Appearance: Alert, No Apparent Distress Head Exam: Normocephalic Neck: Supple Respiratory/Chest: No Respiratory Distress, Lungs Clear, Chest Non-Tender Cardiovascular: Regular Rate, Rhythm, No JVD GI/Abdominal: Normal Bowel Sounds, Non-Tender, No Distention Neuro Exam (Abbreviated): Alert, Oriented, Normal Cognition Back Exam: Full Range of Motion Extremities: Normal Inspection Psychiatric: Normal Affect, Normal Mood Skin Exam: Warm, Dry, Normal Color Course - Vital Signs Text/Narrative:: Patient is feeling much better after IV fluids and meds. She did receive Regeneron. I am starting her on prednisone and will give her a prescription for Z-Abel. She is to return to emergency department if doing worse. She may follow-up with her PCP if not improving. Tylenol and be Profen as needed. Last Recorded V/S: Last Vital Signs Temp 98 F 03/16/21 19:42 Pulse 66 03/16/21 19:42 Resp 16 03/16/21 19:42 BP 129/94 H 03/16/21 19:42 Pulse Ox 100 03/16/21 19:42 - Orders/Labs/Meds Orders: Active Orders 24 hr Category Date Time Status Vital Signs [RC] Q15M Care 03/16/21 20:01 Active EPINEPHrine [Adrenalin] Med 03/16/21 20:00 Active 0.3 mg IM ONETIME PRN Famotidine [Pepcid] Med 03/16/21 20:00 Active 20 mg IVPUSH ONETIME PRN Sodium Chloride 0.9% [Saline Flush] Med 03/16/21 20:00 Active 30 ml FLUSH ASDIRECTED diphenhydrAMINE [Benadryl] Med 03/16/21 20:00 Active 50 mg IVPUSH ONETIME PRN methylPREDNISolone Sod Succ [Solu-MEDROL] Med 03/16/21 20:00 Active 125 mg IVPUSH ONETIME PRN Medication Orders Diphenhydramine HCl (Diphenhydramine 50 Mg/Ml Sdv) 50 mg IVPUSH ONETIME PRN PRN Reason: hypersensitivity reaction Epinephrine HCl (Epinephrine 1 Mg/Ml Sdv) 0.3 mg IM ONETIME PRN PRN Reason: hypersensitivity reaction Famotidine (Famotidine 20 Mg/2 Ml Sdv) 20 mg IVPUSH ONETIME PRN PRN Reason: hypersensitivity reaction Methylprednisolone Sodium Succinate (Methylprednisolone Sodium Succinate 125 Mg/2 Ml Sdv) 125 mg IVPUSH ONETIME PRN PRN Reason: hypersensitivity reaction Sodium Chloride (Sodium Chloride 0.9% 10 Ml Syringe) 30 ml FLUSH ASDIRECTED [facility] Meds: Medications Generic Name Dose Route Start Last Admin Trade Name Freq PRN Reason Stop Dose Admin Diphenhydramine HCl 50 mg 03/16/21 20:00 Diphenhydramine 50 Mg/Ml Sdv IVPUSH ONETIME PRN hypersensitivity reaction Epinephrine HCl 0.3 mg 03/16/21 20:00 Epinephrine 1 Mg/Ml Sdv IM ONETIME PRN hypersensitivity reaction Famotidine 20 mg 03/16/21 20:00 Famotidine 20 Mg/2 Ml Sdv IVPUSH ONETIME PRN hypersensitivity reaction Methylprednisolone Sodium Succinate 125 mg 03/16/21 20:00 Methylprednisolone Sodium Succinate 125 Mg/2 Ml Sdv IVPUSH ONETIME PRN hypersensitivity reaction Sodium Chloride 30 ml 03/16/21 20:00 Sodium Chloride 0.9% 10 Ml Syringe FLUSH ASDIRECTED [facility] Discontinued Medications Generic Name Dose Route Start Last Admin Trade Name Freq PRN Reason Stop Dose Admin Azithromycin 250 mg 03/16/21 22:47 Azithromycin 250 Mg Tab PO 03/16/21 22:48 ONETIME ONE Sodium Chloride 1,000 mls @ 1,000 mls/hr 03/16/21 19:59 03/16/21 20:22 Normal Saline IV 03/16/21 20:58 1,000 mls/hr ONETIME ONE Administration CASIRIVIMAB/IMDEVIMAB 10 ml/ 110 mls @ 220 mls/hr 03/16/21 20:00 03/16/21 20:57 Sodium Chloride IV 03/16/21 20:29 220 mls/hr ONETIME ONE Administration Ketorolac Tromethamine 30 mg 03/16/21 19:59 03/16/21 20:22 Ketorolac 30 Mg/Ml Sdv IVPUSH 03/16/21 20:00 30 mg ONETIME ONE Administration Prednisone 40 mg 03/16/21 22:46 Prednisone 20 Mg Tab PO 03/16/21 22:47 ONETIME ONE Departure - Departure Time of Disposition: 22:54 Disposition: Home, Self-Care 01 Condition: Good Clinical Impression: COVID-19, Tension-type headache - Discharge Information Instructions: COVID-19 Frequently Asked Questions, Tension Headache, Adult, [id number] Forms: ED Department Discharge Additional Instructions: Increase rest and fluid. Zithromax and prednisone as prescribed. Return to ER if worse. Follow-up with PCP if not improving. Tylenol and Motrin if needed. Sepsis Event Note (ED) - Focused Exam Vital Signs: Vital Signs Temp Pulse Resp BP Pulse Ox 03/16/21 19:42 98 F 66 16 129/94 H 100 - My Orders Last 24 Hours: My Active Orders 03/16/21 20:00 EPINEPHrine [Adrenalin] 0.3 mg IM ONETIME PRN Famotidine [Pepcid] 20 mg IVPUSH ONETIME PRN Sodium Chloride 0.9% [Saline Flush] 30 ml FLUSH ASDIRECTED diphenhydrAMINE [Benadryl] 50 mg IVPUSH ONETIME PRN methylPREDNISolone Sod Succ [Solu-MEDROL] 125 mg IVPUSH ONETIME PRN 03/16/21 20:01 Vital Signs [RC] Q15M - Assessment/Plan Last 24 Hours: My Active Orders 03/16/21 20:00 EPINEPHrine [Adrenalin] 0.3 mg IM ONETIME PRN Famotidine [Pepcid] 20 mg IVPUSH ONETIME PRN Sodium Chloride 0.9% [Saline Flush] 30 ml FLUSH ASDIRECTED diphenhydrAMINE [Benadryl] 50 mg IVPUSH ONETIME PRN methylPREDNISolone Sod Succ [Solu-MEDROL] 125 mg IVPUSH ONETIME PRN 03/16/21 20:01 Vital Signs [RC] Q15M
[2021-03-16] MEDS ORDERED: predniSONE 20 MG Tab PO ONE (22:46)
[2021-03-16] MEDS ORDERED: Azithromycin 250 MG Tab PO ONE (22:47)
== END 2021-03-16 23:00 | disposition home or self-care (01) ==
LOC: JD.ED 18:37
DX: U07.1 COVID-19 (principal); G44.209 Tension-type headache, unspecified, not intractable; E66.9 Obesity, unspecified; E03.9 Hypothyroidism, unspecified; Z68.29 Body mass index [BMI] 29.0-29.9, adult; Z79.899 Other long term (current) drug therapy; Z86.16 Personal history of COVID-19
CPT/HCPCS: 96374; 99283; A9270; J1885; J7030; J7512; M0243; Q0243; 99284

== ENCOUNTER 2023-10-21 15:19 | Emergency (ER) | payer BC ==
[2023-10-21] MEDS: Iopamidol 612 MG/ML 100 ML Bottle IVPUSH ONE (16:32)
[2023-10-21] MEDS: Sodium Chloride 0.9% 10 ML Syringe FLUSH PRN (16:33)
[2023-10-21 18:14] VITALS: BP 118/72; PULSE 70
[2023-10-21] MEDS: Ondansetron 4 MG/2 ML SDV IVPUSH ONE (18:22)
[2023-10-21] MEDS: Ketorolac 30 MG/ML SDV IVPUSH ONE (18:23)
== END 2023-10-21 18:26 | disposition home or self-care (01) ==
LOC: JD.ED 15:19
DX: M54.2 Cervicalgia (principal); E03.9 Hypothyroidism, unspecified; E66.9 Obesity, unspecified; Z79.899 Other long term (current) drug therapy; Z68.29 Body mass index [BMI] 29.0-29.9, adult; Z86.16 Personal history of COVID-19
CPT/HCPCS: 36415; 70491; 70491-26; 84484; 96374; 96375; 99284; 99284-25; J1885; J2405; J3490; Q9967